=== PATIENT | female | born 1965 | race Caucasian/White ===

== ENCOUNTER 2017-05-18 21:53 | Inpatient (IN) | payer MEDICARE, OTHER ==
[~2017-05-18] VITALS: Ht 175.3 cm; Wt 131.8 kg
--- NOTE | ~2017-05-18 | ECHO ---
Transthoracic Echocardiography Report (TTE) Demographics Patient Name JEREMY JORGE Date of Study 05/19/2017 Patient Number [id number] Visit Number [id number] Date of 1965 Room Number G6302 Gender Female Number Age 51 year(s) Referring Bekah Gallo Immunopathologist Bry Palomares RVT Physician Physician Interpreting Yumiko Varghese Interventional Cardiologist Physician Supervising Ordering Jamal Flores CRNA, MD/MLP Physician Nurse Stress Pan Cleaner Conclusions Contractility Score Summary Normal Left Ventricular contractility was noted. Summary Technically difficult exam. The estimated left ventricular ejection fraction is 50%.Normal LV internal dimensions.Anterior septum is moderately hypokinetic. Moderate concentric left ventricular hypertrophy. The right atrium is mildly dilated. Mild mitral annular calcification. Trivial tricuspid regurgitation by color Doppler. Procedure Type of Study TTE procedure:2D Echocardiogram. Procedure Date Date: 05/19/2017 Start: 03:21 PM Study Location: Inpatient Portable Technical Quality: Adequate visualization Additional Indications:possible sepsis Appropriate Use Criteria: 9 Patient Status: Routine HR: 86 bpm BP: 144/95 mmHg M-Mode/2D Measurements LV Diastolic Dimension: 3.99 cm LV Systolic Dimension: 2.7 cm LV Septum Diastolic: 1.76 cm LV PW Diastolic: 1.46 cm AO Root Dimension: 2.3 cm Cardiac Output: 4.29 l/min LA Dimension: 3.5 cm RV Diastolic Dimension: 3.04 cm LVOT: 1.8 cm LVOT VTI: 19.6 cm LV Stroke volume: 49.85 ml RV Mid: 2.89 cm RV Length: 7.17 cm TAPSE: 1.66 cm TDI-S': 12.2 cm/s Doppler Measurements AV Peak Velocity: 1.87 m/s MV Peak E-Wave: 0.5 m/s AV Peak Gradient: 13.99 mmHg MV Peak A-Wave: 0.99 m/s AV Mean Gradient: 9 mmHg MV E/A Ratio: 0.5 LVOT Peak Velocity: 1.34 m/s TR Velocity:2.25 m/s PV Peak Velocity: 1.17 m/s TR Gradient:20.25 mmHg PV Peak Gradient: 5.48 mmHg A' Septal Velocity: 0.12 m/s E' Septal Velocity: 0.05 m/s E' Lateral Velocity: 0.09 m/s Findings Left Ventricle Moderate concentric left ventricular hypertrophy with normal internal dimensions and EF.Anterior septum is moderately hypokinetic. Right Ventricle Normal right ventricle structure and function. Left Atrium Normal left atrial size. Right Atrium The right atrium is mildly dilated. IVC not visualized due to poor subcostal window. Mitral Valve Mild mitral annular calcification. Aortic Valve Normal aortic valve structure and function. Tricuspid Valve Trivial tricuspid regurgitation by color Doppler. Pulmonic Valve Normal pulmonic valve structure and function. Pericardial Effusion No evidence of pericardial effusion. Miscellaneous Visualized portions of the aortic root and ascending aorta appear normal in size. Pleural Effusion No evidence of pleural effusion. Contractility Score LV regional wall motion:(0-Non visualized 1-Normal 2-Hypokinesis 3-Akinesis 4-Dyskinesis 5-Aneurysm) Signature dtt: Halima Calderon dtd: 05/19/17 1521 Physician Self Edit
--- NOTE | ~2017-05-18 | DS ---
PATIENT'S NAME: JEREMY BENJAMIN [facility] AGE: 51 Y [address] ROOM: [address] [address] LOCATION: GPCU ADMIT DATE: 05/18/2017 Discharge Summary DISCHARGE DATE: 05/22/2017 FAMILY PHYSICIAN: Hannah Dennison MD ATTENDING PHYSICIAN: Kvng Godfrey REASON FOR ADMISSION: Respiratory failure and hypotension. PRINCIPAL DIAGNOSIS: Shock, drug-related. SECONDARY DIAGNOSES: 1. Hypoxic respiratory failure. 2. Volume overload. 3. Amphetamine positive urine drug screen (likely from dietary supplement recently reported). 4. Morbid obesity. 5. Narcotic dependence. 6. Possible community-acquired pneumonia. 7. Abnormal echocardiogram. 8. Acute kidney injury secondary to hypertension, resolved. 9. Essential hypertension. 10. Hypothyroidism. LABORATORY DATA AND IMAGING STUDIES: Pending labs and tests at the time of discharge: None. PROCEDURES PERFORMED: Procedures during admission: A transthoracic echocardiogram showing a technically difficult exam with an ejection fraction of 50%, moderately hypokinetic anterior septum as well as concentric LVH, and a mildly dilated right atrium. HOSPITAL COURSE: Ms. Benjamin is a very pleasant, 51-year-old female with past medical history of lumbar stenosis, on chronic opioids; morbid obesity, had been on the road driving to [place] for an endocrine appointment for hypothyroidism, however, started feeling unwell, confused, weak, and this prompted them to drive back home and presented to a local emergency department. On arrival there, she was confused, somnolent, and complaining of shortness of breath. She was found to be hypotensive to the 70s with saturations in the mid 80s; and because of this and hypersomnolence, she was intubated at the outside facility prior to transfer here to [facility]. Initial laboratory work noted acute kidney injury and a leukocytosis to 14. EKG did show what was apparently an old left bundle branch block and this was read out from the outside facility. Lactate was found to be 4.3 prior to transfer. On arrival, the patient was intubated and on Levophed drip for hypotension. She was awake and alert, following commands, and was started on PATIENT'S NAME: JEREMY BENJAMIN [facility] AGE: 51 Y [address] ROOM: [facility] [place], [place] [address] LOCATION: GPCU ADMIT DATE: 05/18/2017 Discharge Summary DISCHARGE DATE: 05/22/2017 FAMILY PHYSICIAN: Hannah Dennison MD ATTENDING PHYSICIAN: Kvng Godfrey fentanyl and Precedex. On the morning following admission, patient was able to wean from sedation, did quite well and was extubated rapidly. She did require supplemental oxygen via nasal cannula, but otherwise has done well. Infectious workup was largely unremarkable including a chest x-ray, urine studies, no apparent skin lesions, and a negative procalcitonin. However, with elevated leukocytosis and with no other explanation for her shock, patient was maintained on Zosyn. Later on hospital day #2, I received notification that outside urine drug screen had been noted positive for amphetamines. On lengthy discussion with the patient and her , there was adamant denial of any known ingestion or use of amphetamines of any type, however, patient did [place] and had taken the first dose just prior to the onset of symptoms. This may very well have been the provoking event for hospital admission and initial symptoms. The patient does have chronic pain with narcotic dependence, and she was maintained on her home pain medications during stay, following arousal and this did not contribute to hypersomnolence any further. The patient does deny any additional use of these medications prior to admission. From an infectious standpoint, white blood cell count improved drastically. She had received 4 days of Zosyn therapy during her stay. We will discontinue antibiotics on discharge for possible of community-acquired pneumonia as ongoing infection felt exceedingly unlikely. The day prior to discharge, the patient was noted to be slightly volume overloaded from volume resuscitation at the time of hypotension and tolerated a single dose of Lasix 20 mg IV well with resolution of oxygen requirements, on room air at the time of discharge. Acute kidney injury had also resolved at the time of discharge to a creatinine of 0.8, and as mentioned above no culture growth during stay to localize a source of infection. MEDICATIONS AND PERTINENT CHANGES: None new. List of medications is as follows on discharge: 1. Lipitor 20 mg daily. 2. Wellbutrin 300 mg p.o. every morning. 3. Celecoxib 200 mg p.o. daily. 4. Clonazepam 1 mg p.o. at night as well as 0.5 mg p.o. in the morning. 5. Levothyroxine 112 mcg p.o. daily. 6. Morphine sulfate that is extended release, so MS Contin 15 mg p.o. q.12 hours. 7. Nebivolol 5 mg p.o. every evening. 8. Pantoprazole 40 mg p.o. daily before breakfast. 9. Venlafaxine 300 mg p.o. every morning. 10. Hydrocodone and acetaminophen 5/325 [place] tablets, 1 tablet p.o. twice daily as needed p.r.n. for pain. 11. Trazodone 200 to 300 mg p.o. nightly at bedtime p.r.n. insomnia. 12. Lisinopril 5 mg at bedtime. PATIENT'S NAME: JEREMY BENJAMIN [facility] AGE: 51 Y [address] ROOM: [place] [address] [facility]ATION[facility] ADMIT DATE: 05/18/2017 Discharge Summary DISCHARGE DATE: 05/22/2017 FAMILY PHYSICIAN: Hannah Dennison MD ATTENDING PHYSICIAN: Kvng Godfrey 13. Cyclobenzaprine 10 mg t.i.d. p.r.n. muscle pain. 14. Isosorbide and mononitrate 15 mg p.o. twice daily. 15. Magnesium carbonate 2 to 4 tablets p.o. 4 times a day p.r.n. heartburn. CONSULTANTS: None. DISCHARGE PHYSICAL EXAMINATION: VITAL SIGNS: Just prior to discharge; temperature is 97.7, pulse 56, respiratory rate is 18, blood pressure 123/65, and saturating 93% on room air. GENERAL: In no acute distress. Sitting up in bed, comfortable and pleasant. CARDIOVASCULAR: Mildly bradycardic, but otherwise regular. No murmurs appreciated. LUNGS: Clear to auscultation bilaterally with normal effort on room air. ABDOMEN: Soft, nontender, obese. EXTREMITIES: Lower extremities without appreciable edema. NEUROLOGIC: Alert and oriented. Cooperative and pleasant. DISPOSITION AND DISCHARGE INSTRUCTIONS: The patient was discharged to home to follow up with PCP in approximately 1 week. No immediate followup tests planned, though may consider a repeat echocardiogram in the future to determine if septal wall-motion abnormality noted above is acute or chronic, though with history of longstanding left bundle branch block and negative troponins during stay may in fact be the result of a prior insult. Time spent on date of discharge, including direct patient's care and coordination of discharge activities was 40 minutes. MD SELIN LUNA/jolly /[id number] d: 05/22/17 1122 t: 05/27/17 0921, DISCHARGE SUMMARY
--- NOTE | ~2017-05-18 | HP ---
PATIENT'S NAME: JEREMY JORGE [facility] AGE: 51 Y [address] ROOM: [address] [place], [place] [address] LOCATION: [facility] ADMIT DATE: 05/18/2017 History & Physical DISCHARGE DATE: FAMILY PHYSICIAN: PHYSICIAN, UNKNOWN ATTENDING PHYSICIAN: CODEY CAT DATE OF SERVICE: CHIEF COMPLAINT: Respiratory failure and hypotension. HISTORY OF PRESENT ILLNESS: A 51-year-old lady with a past medical history of hypotension, lumbar stenosis on chronic opioid medication, peripheral vascular disease, and morbid obesity from [place], [place], was driving to [place] with her today for Endocrinology appointment in [place] for hypothyroidism. They admitted to [place] and then she started feeling bad. She was confused and not talking much and feeling weak. They drove back all the way to the [place] and presented to the emergency department. Per the provider over there, when she walked into the emergency department, she was confused, dosed off pretty frequently, and was complaining that she is short of breath. Initial evaluation was started over there, but during that course, she was found to have hypotension in the 70s and saturations around mid 80s as well. Because of her hypersomnolence, she was intubated and mechanically ventilated over there. Initial lab work was drawn, which was impressive for SUZANNA and white count at 14,. EKG showed left bundle-branch block, which was told me by provider over there that it is old. Lactate was also found to be 4.3 and first set of troponin was negative. She was transferred here for further medical care. She arrived here intubated and was on Levophed drip for the hypotension. She was awake and alert and was following commands and answering yay or nay questions. On my questioning, she said she does not have any shortness of breath at this time, does not have any cough or sputum production, no chest pain, no chest pressure, no abdominal pain, no burning on urination, and no dizziness. REVIEW OF SYSTEMS: All other systems reviewed and were negative except what is mentioned in the HPI. This was also confirmed with the and the son. Rest of the review of the system per HPI. ALLERGIES: NO KNOWN DRUG ALLERGIES. PAST MEDICAL HISTORY: Peripheral vascular disease, hypotension, anxiety, lumbar stenosis, history of PATIENT'S NAME: JEREMY JORGE [facility] AGE: 51 Y [address] ROOM: [address] [place], [place] [address] LOCATION: [facility] ADMIT DATE: 05/18/2017 History & Physical DISCHARGE DATE: FAMILY PHYSICIAN: PHYSICIAN, UNKNOWN ATTENDING PHYSICIAN: CODEY CAT back surgeries, hypothyroidism, and chronic narcotic medications. MEDICATIONS: Medications are being reconciled right now. SOCIAL HISTORY: Never a smoker. No alcohol or drug abuse. Lives with at [place], [place]. FAMILY HISTORY: Significant for heart disease in mom. PHYSICAL EXAMINATION: VITAL SIGNS: Blood pressure on arrival to our facility was around 100 on Levophed drip, she was mechanically ventilated with the saturations in the 98% with the FiO2 of 40%, afebrile, and heart rate of 80. GENERAL: In no acute distress. Alert and oriented. Answering questions yay or nay. HEENT: Head: Atraumatic, normocephalic. Eyes: Nonicteric. No pallor. Oropharynx: Moist mucous membranes. CARDIOVASCULAR: S1, S2. No murmurs, gallops, or rubs. LUNGS: Clear to auscultation bilaterally. ABDOMEN: Obese, nontender, nondistended. Bowel sounds present. EXTREMITIES: No clubbing, cyanosis, or edema. PSYCH: Cannot be assessed at this point. NEUROLOGIC: Cranial nerves 2 through 12 intact. No motor or sensory deficit noted. MUSCULOSKELETAL: No muscle tenderness or joint swelling noted. SKIN: No dryness or blemishes noted. DIAGNOSTIC DATA: Chest x-ray was done at the outside facility and also at our facility, which showed appropriate positioning of the endotracheal tube as well as central line, which was placed here. Bilateral infrahilar hazy opacities noted, which could reflect pulmonary edema. The other lab work from outside facility showed a white count of 14, hemoglobin of 14, platelets 248, creatinine of 2.3, BUN of 15, lactate was 4.6, troponin one set was negative. ASSESSMENT: 1. Shock, likely septic with a negative procalcitonin at this point. 2. Acute kidney injury. 3. Acute hypoxic hypercapnic respiratory failure. 4. Morbid obesity. 5. Hypotension. 6. Narcotic dependence. PATIENT'S NAME: JEREMY JORGE [facility] AGE: 51 Y [address] ROOM: [place] [address] LOCATION: [facility] ADMIT DATE: 05/18/2017 History & Physical DISCHARGE DATE: FAMILY PHYSICIAN: PHYSICIAN, UNKNOWN ATTENDING PHYSICIAN: CODEY CAT PLAN: At this point, we are going to be admitting this patient to the ICU. Treat this with a suspicion of sepsis. She has already received 2 L of IV fluids at the outside facility and one dose of vancomycin had been given. We will repeat blood cultures and all the lab work again and continue the vancomycin and Zosyn at this point. Continue the mechanical ventilation. Continue to monitor urine output as well as serial labs to see the improvement in the renal failure. Lactate is drawn here at our facility, which is now 2.2 from 4.6 at the outside facility. She had IO access during the flight. We obtained a central line access on her as well. She is full code for now. Further management will depend on her course in the hospital. MD YUKO ROSSI/jolly /[id number] D: T: HISTORY & PHYSICAL
--- NOTE | ~2017-05-18 | OR ---
PATIENT'S NAME: JEREMY JORGE [facility] AGE: 51 Y [address] ROOM: [place] [address] LOCATION: GICU ADMIT DATE: 05/18/2017 OR/Procedure Report DISCHARGE DATE: FAMILY PHYSICIAN: PHYSICIAN, UNKNOWN ATTENDING PHYSICIAN: CODEY GODFREY SURGEON: Codey Godfrey MD [employer] VICE PRESIDENT: DATE OF PROCEDURE: 05/18/2017 PROCEDURE: Central venous catheterization. INDICATIONS: Lack of IV access and need to give vasopressor agents. PROCEDURE IN DETAIL: Informed consent explaining risks and benefits was obtained from the . Both internal jugular veins were examined using ultrasonography. Right side was selected for central venous catheterization. The patient was prepped using sterile technique. Using ultrasonography, the right internal jugular was entered with the aspiration of oozing purple blood. A guidewire was passed through the needle and needle was retrieved. Confirmation of the guidewire present in the right IJ was confirmed using ultrasonography. Soft tissue dilator was over the guidewire and retrieved back. The central line was advanced over the guidewire and secured. Guidewire was retrieved. All lines were aspirated and flushed appropriately. Postprocedure chest x-ray was done, which showed adequate positioning of the central vein without any complications noted. CODEY GODFREY MD YUKO/jenniferl /[id number] d: 05/19/17 0113 t: 05/20/17 0205, OPERATIVE SUMMARY
[~2017-05-18 21:53] MED LIST changes: -CELEBREX200 MG PO; -COLACE100 MG PO; -FLEXERIL10 MG PO; -GAVISCON ES TA1 EACH PO; -IMDUR30 MG PO; -MIRALAX17 GM PO; -MS CONTIN15 MG PO; -WELLBUTRIN XL300 M1 PO
[2017-05-18 22:35] LABS: BICARBONATE 27.7 mmol/L (18.0-23.0); LACTATE 2.2 mEq/L (0.50-1.60); PCO2 49 mmHg (35-45); PO2 84 mmHg (80-90)
[2017-05-18 22:40] LABS: BICARBONATE 27.1 mmol/L (18.0-23.0); PCO2 55 mmHg (35-45); PO2 82 mmHg (80-90)
[2017-05-18 22:55] LABS: INR - (THERAPEUTIC) 0.99 (0.92-1.07); PROTIME 10.4 SECONDS (9.8-11.4)
[2017-05-18 23:06] LABS: ALBUMIN 3.2 gm/dL (3.5-5.0); ANION GAP 13.9 (10.0-19.0); CALCIUM 8.2 mg/dL (8.5-10.5); POTASSIUM 4.9 mMol/L (3.7-5.1); TOTAL BILIRUBIN 0.4 mg/dL (0.0-1.5); TOTAL PROTEIN 6.4 g/dL (6.0-8.4)
[2017-05-18] MEDS ORDERED: FLEXERIL10 MG PO (23:48)
[2017-05-18] MEDS ORDERED: IMDUR30 MG PO (23:51)
[2017-05-19] MEDS ORDERED: MS CONTIN15 MG PO (00:02)
[2017-05-19] MEDS ORDERED: CELEBREX200 MG PO (00:05)
[2017-05-19] MEDS ORDERED: WELLBUTRIN XL300 M1 PO (00:07)
[2017-05-19] MEDS ORDERED: GAVISCON ES TA1 EACH PO (00:11)
[2017-05-19 02:16] LABS: BASOPHIL # 0.1 K/uL (0.0-0.2); BASOPHIL % 0.5 %; EOSINOPHIL % 0.4 %; HEMATOCRIT 35.7 % (33.0-46.0); HEMOGLOBIN 11.7 g/dL (10.0-15.0); IMMATURE GRANULOCYTE % 0.4 %; LYMPHOCYTE % 18.4 %; MCH 29.8 pg (27.0-34.0); MCHC 32.8 gm/dL (32.0-36.5); MCV 90.8 fl (83.0-98.0); MONOCYTE # 0.9 K/uL (0.0-1.0); MONOCYTE % 8.2 %; MPV 9.2 fl (9.4-12.4); NEUTROPHIL # (ANC) 7.9 K/uL (1.8-7.8); NEUTROPHIL % 72.1 %; NRBC % 0 /100WBC (0-0.00); PLATELET COUNT 186 K/uL (150-450); RBC 3.93 M/uL (3.50-5.50); RDW-CV 13.2 % (11.9-14.6)
[2017-05-19 02:22] LABS: BILIRUBIN URINE NEGATIVE (NEGATIVE); BLOOD URINE 150 /UL (NEGATIVE); COLOR URINE YELLOW (YELLOW); GLUCOSE URINE NEGATIVE (NEGATIVE); KETONE URINE NEGATIVE (NEGATIVE); LEUKOCYTES URINE 25 /UL (NEGATIVE); NITRITE URINE NEGATIVE (NEGATIVE); PROTEIN URINE 30 mg/dL (NEGATIVE); TURBIDITY URINE CLEAR (CLEAR); UROBILINOGEN URINE NORMAL (NORMAL)
[2017-05-19 02:34] LABS: BACTERIA URINE NEGATIVE (NEGATIVE); EPITHELIAL URINE 0-2 #/HPF (NEGATIVE); WBC URINE 0-2 #/HPF (NEGATIVE)
[2017-05-19 04:13] LABS: BICARBONATE 27.7 mmol/L (18.0-23.0); LACTATE 1.9 mEq/L (0.50-1.60); PCO2 39 mmHg (35-45); PO2 82 mmHg (80-90)
[2017-05-19 04:39] LABS: ALBUMIN 2.8 gm/dL (3.5-5.0); ANION GAP 11.1 (10.0-19.0); CREATININE 1.4 mg/dL (0.5-1.1); POTASSIUM 4.1 mMol/L (3.7-5.1); TOTAL PROTEIN 5.6 g/dL (6.0-8.4)
[2017-05-19 04:48] LABS: TOTAL BILIRUBIN 0.6 mg/dL (0.0-1.5)
[2017-05-19 04:52] LABS: BASOPHIL % 0.3 %; EOSINOPHIL # 0.1 K/uL (0.0-0.5); EOSINOPHIL % 0.9 %; HEMOGLOBIN 11.2 g/dL (10.0-15.0); IMMATURE GRANULOCYTE % 0.3 %; LYMPHOCYTE # 1.8 K/uL (0.8-4.0); LYMPHOCYTE % 19.8 %; MCH 29.9 pg (27.0-34.0); MCHC 32.9 gm/dL (32.0-36.5); MCV 90.7 fl (83.0-98.0); MONOCYTE # 0.8 K/uL (0.0-1.0); MONOCYTE % 9.1 %; MPV 9.7 fl (9.4-12.4); NEUTROPHIL # (ANC) 6.3 K/uL (1.8-7.8); NEUTROPHIL % 69.6 %; NRBC % 0 /100WBC (0-0.00); PLATELET COUNT 155 K/uL (150-450); RBC 3.75 M/uL (3.50-5.50); RDW-CV 13.3 % (11.9-14.6); WBC 9.1 K/uL (4.0-11.0)
[2017-05-19 16:47] LABS: ANION GAP 10.2 (10.0-19.0); POTASSIUM 4.2 mMol/L (3.7-5.1)
[2017-05-20 05:54] LABS: CREATININE 0.8 mg/dL (0.5-1.1)
[2017-05-20 05:56] LABS: BASOPHIL # 0.1 K/uL (0.0-0.2); BASOPHIL % 0.6 %; EOSINOPHIL # 0.3 K/uL (0.0-0.5); EOSINOPHIL % 3.2 %; HEMATOCRIT 32.2 % (33.0-46.0); HEMOGLOBIN 10.7 g/dL (10.0-15.0); IMMATURE GRANULOCYTE % 0.4 %; LYMPHOCYTE # 1.9 K/uL (0.8-4.0); LYMPHOCYTE % 19.2 %; MCH 30.2 pg (27.0-34.0); MCHC 33.2 gm/dL (32.0-36.5); MONOCYTE % 10.4 %; MPV 9.9 fl (9.4-12.4); NEUTROPHIL # (ANC) 6.6 K/uL (1.8-7.8); NEUTROPHIL % 66.2 %; NRBC % 0 /100WBC (0-0.00); PLATELET COUNT 155 K/uL (150-450); RBC 3.54 M/uL (3.50-5.50); RDW-CV 13.3 % (11.9-14.6)
[2017-05-22 03:34] LABS: BASOPHIL # 0.1 K/uL (0.0-0.2); BASOPHIL % 0.9 %; EOSINOPHIL # 0.2 K/uL (0.0-0.5); EOSINOPHIL % 4.1 %; HEMATOCRIT 32.1 % (33.0-46.0); HEMOGLOBIN 10.4 g/dL (10.0-15.0); IMMATURE GRANULOCYTE % 0.2 %; LYMPHOCYTE # 1.6 K/uL (0.8-4.0); LYMPHOCYTE % 29.1 %; MCH 29.4 pg (27.0-34.0); MCHC 32.4 gm/dL (32.0-36.5); MCV 90.7 fl (83.0-98.0); MONOCYTE # 0.6 K/uL (0.0-1.0); MONOCYTE % 10.1 %; NEUTROPHIL # (ANC) 3.1 K/uL (1.8-7.8); NEUTROPHIL % 55.6 %; NRBC % 0 /100WBC (0-0.00); PLATELET COUNT 157 K/uL (150-450); RBC 3.54 M/uL (3.50-5.50); RDW-CV 13.2 % (11.9-14.6); WBC 5.6 K/uL (4.0-11.0)
[2017-05-22 03:49] LABS: ANION GAP 10.4 (10.0-19.0); CALCIUM 8.3 mg/dL (8.5-10.5); CREATININE 0.8 mg/dL (0.5-1.1); POTASSIUM 3.4 mMol/L (3.7-5.1)
[2017-05-22] MEDS ORDERED: CPAP INH (15:31)
[2017-05-22] MEDS ORDERED: COLACE100 MG PO (15:32)
[2017-05-22] MEDS ORDERED: MIRALAX17 GM PO (15:33)
== END 2017-05-22 16:15 | disposition disaster alternative care site (69) | DRG 871 ==
LOC: GICU 21:53 → GPCU 21:53 → GICU 05-19 16:33 → GPCU 05-19 20:50
PROVIDERS: Internal Medicine; ADMIT Internal Medicine
DX: A41.9 Sepsis, unspecified organism (principal); J96.01 Acute respiratory failure with hypoxia; R65.21 Severe sepsis with septic shock; J96.02 Acute respiratory failure with hypercapnia; N17.9 Acute kidney failure, unspecified; Z68.43 Body mass index [BMI] 50.0-59.9, adult; F11.20 Opioid dependence, uncomplicated; E03.9 Hypothyroidism, unspecified; I10 Essential (primary) hypertension; E66.01 Morbid (severe) obesity due to excess calories
CPT/HCPCS: C9113; J1644; J1940; J2001; J2250; J2543; J3010; J3370; J7040; J7050; J7060; J7120; Q9967

== ENCOUNTER → 2017-05-18 | Outpatient (CLI) | payer MEDICARE, OTHER ==
[~2017-05-18] MED LIST: AMBIEN10 MG PO; BYSTOLIC5 MG PO; CELEBREX200 MG PO; COLACE100 MG PO; CPAP INH; DESYREL100 MG PO; EFFEXOR XR150 MG PO; FLEXERIL10 MG PO; GAVISCON ES TA1 EACH PO; GLUCOPHAGE500 MG PO; IMDUR30 MG PO; ISORDIL30 MG PO; KLONOPIN1 MG PO; LEVOTHROID (S112 MCG PO; LIPITOR20 M1 PO; LODINE400 MG PO; MIRALAX17 GM PO; MS CONTIN15 MG PO; NORCO 5-325 TA1 EACH PO; PRINIVIL (ZESTRI5 MG PO; PROTONIX40 MG PO; VITAMIN B-12500 MCG PO; VITAMIN D35000 UNIT PO; WELCHOL 625MG625 MG PO; WELLBUTRIN XL300 M1 PO
== END | disposition disaster alternative care site (69) ==
LOC: GAMB 21:38
DX: R06.9 Unspecified abnormalities of breathing (principal); R06.02 Shortness of breath
CPT/HCPCS: A0425; A0428

== ENCOUNTER → 2017-06-24 | Outpatient (CLI) | payer MEDICARE, OTHER ==
[~2017-06-24] MED LIST changes: +CELEBREX200 MG PO; +COLACE100 MG PO; +FLEXERIL10 MG PO; +GAVISCON ES TA1 EACH PO; +IMDUR30 MG PO; +MIRALAX17 GM PO; +MS CONTIN15 MG PO; +WELLBUTRIN XL300 M1 PO
== END | disposition disaster alternative care site (69) ==
LOC: GRAD 12:29
DX: M17.0 Bilateral primary osteoarthritis of knee (principal); M25.562 Pain in left knee